=== PATIENT | female | born 1990 | race Hispanic/Latino ===

== ENCOUNTER 2019-03-26 09:01 | Inpatient (IN) | payer MEDICAID, SELFPAY ==
[2019-03-26] MEDS ORDERED: hydrALAZINE 20 MG/ML VIAL SLOW IVP PRN ×2 (09:40→14:21)
[2019-03-26] MEDS ORDERED: Ondansetron PF 4 MG/2 ML Vial IVP PRN (09:40)
[2019-03-26] MEDS ORDERED: Lidocaine 1% (PF) 30 ML VIAL SC PRN (09:40)
[2019-03-26] MEDS ORDERED: NS / Oxytocin 40 units/1000ml 1,000 ML IV PRN (09:40)
[2019-03-26] MEDS ORDERED: Promethazine HCl 25 MG/ML VIAL IM PRN (09:40)
[2019-03-26] MEDS ORDERED: Lactated Ringer's 1,000 ML IV SCH (09:45)
[2019-03-26] MEDS ORDERED: Penicillin G Potassium 5 MILL.UNITS VIAL ONE (09:46)
[2019-03-26] MEDS ORDERED: NS / Oxytocin 40 units/1000ml 1,000 ML ONE (09:49)
--- NOTE | 2019-03-26 10:03 | PDOC.FPROB ---
FMR OB H&P: HPI - History of Present Illness Chief Complaint: Contractions Indentification: 29yo female at approx 39-40wks History of Present Illness: 29yo kazakh speaking female at approx 39-40wks presents for contractions. care in [place]. Report contractions starting this morning. Denies vaginal bleeding, LOF, vaginal discharge. Primary Care Physician: Sumeet FMR OB H&P: Current - Care : 2 Para: 1001 Gestational age: 39-40wks Due date: approx 03/22-03/31 Course/Complications: Denies - OB Labs Blood type: unknown RH: unknown Antibody Screen: unknown HIV: unknown RPR: unknown HepBsAg: unknown Quad screen: unknown Gonorrhea: unknown Chlamydia: unknown GBS: unknown FMR OB H&P: History - Past Medical History PMH: Denies - OB History OB History: 1 vaginal delivery at term - Surgical History Sx History: Denies - Social History Social History: Denies tobacco, alcohol and drug use - Family History Family History: Noncontributory FMR OB H&P: Medications - Current Home Medications: Medication Instructions Recorded Confirmed Type No Known 03/26/19 03/26/19 History Allergies/Adverse Reactions: Allergies Allergy/AdvReac Type Severity Reaction Status Date / Time Sulfa (Sulfonamide Allergy Verified 03/26/19 10:03 Antibiotics) trimethoprim Allergy Verified 03/26/19 10:03 FMR OB H&P: ROS - Review of Systems General: denies: fever/chills Eyes: denies: vision changes, double vision, scotomas, floaters Respiratory: denies: shortness of breath Gastrointestinal: denies: abdominal pain, nausea Genitourinary (Female): reports: contractions. denies: vaginal bleeding Neurologic: denies: headache Integumentary: denies: rash FMR OB H&P: Vital Signs - Maternal Vital signs: Selected Entries 03/26/19 09:23 Temperature 97.5 F L Pulse Rate 81 Blood Pressure 113/81 [Semi-Fowlers] Respiratory 18 Rate - Heart Tones Baseline: 140 Variability: moderate Acceleration: present Deceleration: absent Category: category 1 FMR OB H&P: Physical Exam - Physical Exam General: NAD, awake, alert and oriented HEENT: normocephalic and atraumatic, MMM, conjunctiva clear, oropharynx clear Neck: supple, trachea midline General: no respiratory distress Abdomen: soft, gravid Musculoskeletal: pulses present, no misalignment/asymmetry, no atrophy Skin: no rash Lymphatic: no unusual bruising or bleeding Psychiatric: intact recent and remote memory, good judgement and insight, normal mood and affect - Pelvic Exam Vulva: normal hair distribution, appropriate deborah stage, no masses SVE: /-2 Membranes: Intact Presentation: cephalic by US FMR OB H&P: A/P Disposition: 29yo female at approx 39-40wks presenting in active labor Term - No records due to PNC in [place] - Will obtain routine admission labs as well as HIV, Rubella labs and UDS - Cephalic confirmed with US. - GBS unknown, Penicillin G ordered - Manage expectantly - Does not desire epidural Discussion: Date/Time: 03/26/19 1003 This H&P was discussed with Dr. Roblero who agree with the above documentation and plan. Addendum - Attending - Attending Attestation Date/Time: 03/26/19 1252 I personally evaluated the patient and discussed the management with Dr. Retana. I agree with the History, Examination, Assessment and Plan documented above.
[2019-03-26 10:10] VITALS: BMI 24.0
[2019-03-26] MEDS ORDERED: Penicillin G Potassium 5 MILL.UNITS in Sodium Chloride 0.9% 100 ML IVPB SCH (10:15)
[2019-03-26 10:17] LABS: Hemoglobin 14.6 g/dL (12.0-16.0); Mean Corpuscular HGB CONC 34.2 g/dL (32.0-36.0); Mean Corpuscular Hemoglobin 32.6 pg (27.0-31.0); Mean Corpuscular Volume 95.2 fL (78.0-98.0); Mean Platelet Volume 9.6 fL (7.4-10.4); Platelet Count 133 thou/uL (130-400); RBC Distribution Width 11.2 % (11.5-14.5); Red Blood Cell (RBC) Count 4.49 mill/uL (4.20-5.40); White Blood Cell (WBC) Count 10.1 thou/uL (4.8-10.8)
[2019-03-26 10:57] LABS: Syphilis Antibody Nonreactive (Nonreactive); Syphilis Antibody Index 0.05 S/CO (<1.00 Non-Reactive)
[2019-03-26 11:00] LABS: HBSAg Index 0.19 S/CO (0-0.99); Hep B Surf Ag Non-Reactive S/CO (NonReactive)
[2019-03-26 12:21] LABS: HIV (1/2) Antibody/Antigen Non-Reactive (NonReactive); HIV 1/2 INDEX 0.11 S/CO (<1.00)
[2019-03-26 12:33] LABS: Acetaminophen Less than 6.0 mcg/mL (10.0-30.0); Alcohol Less than 10 mg/dL (Less than 10); Salicylate Less than 8.0 mg/dL (15.0-30.0)
[2019-03-26] MEDS ORDERED: Penicillin G 2.5 MILL.units 2.5 MILL.UNITS in Premix Bag 1 BAG IVPB SCH (14:15)
[2019-03-26] MEDS ORDERED: Bisacodyl 10 MG SUPP PR PRN (14:21)
[2019-03-26] MEDS ORDERED: Milk Of Magnesia 30 ML UDCUP PO PRN (14:21)
[2019-03-26] MEDS ORDERED: Adacel (T-DAP) 0.5 ML SYRINGE IM ONE (14:21)
[2019-03-26] MEDS ORDERED: Lanolin Ointment 7 GM TUBE TOP PRN (14:21)
[2019-03-26] MEDS ORDERED: NS / Oxytocin 40 units/1000ml 1,000 ML IV SCH (14:21)
[2019-03-26] MEDS: Ibuprofen 800 MG TAB PO SCH ×2 (16:11→21:59)
[2019-03-26] MEDS: Ferrous Sulfate 325 MG TAB PO SCH (18:04)
[2019-03-26] MEDS: Docusate Calcium (SURFAK) 240 MG CAP PO SCH (21:59)
[2019-03-27] MEDS: Ibuprofen 800 MG TAB PO SCH ×3 (05:15→22:39)
--- NOTE | 2019-03-27 07:22 | PDOC.PP ---
Post Progress Note Post Day #: 1 Subjective: Pain is well controlled with medications and abdominal binder. Tolerating PO, ambulating, no difficulty with urination. Breast and bottle feeding. Plans to return to [place]. Does not have all the resources she needs for baby at this time. Would appreciate talking with case management. PO intake tolerated: yes Flatus: yes Ambulation: yes Vital Signs (12 hours) Temp Pulse Resp BP BP Pulse Ox 03/27/19 05:15 98.3 F 54 L 16 105/73 03/26/19 23:37 98.5 F 52 L 16 114/75 03/26/19 21:45 98.8 F 95 16 108/62 97 Weight Weight 56 kg - Physical Examination General: NAD Cardiovascular: no m/r/g, RRR Respiratory: clear to auscultation bilaterally, non-labored breathing Abdominal: no distention, appropriately TTP Deviation from normal: hypoactive bowel sounds. Abdominal binder in place. Neurological: no gross focal deficits Psychiatric: A&Ox3, normal affect Result Diagrams: 03/26/19 10:03 Additional Labs: Post Labs Blood Type A POSITIVE 03/26/19 10:19 Hep Bs Antigen Non-Reactive S/CO (NonReactive) 03/26/19 10:03 - Assessment/Plan 29yo now delivered via Term sIUP, delivered - Meeting PP milestones - Pain well controlled - Breast and bottle feeding Unsure dating, poor care - PNC in [place]. Unsure of due date. Approx 40wks - Drug screen negative. - CM consulted - Rubella status pending. Addendum - Attending - Attending Attestation Date/Time: 03/28/19 0850 I personally evaluated the patient and discussed the management with Dr. Retana. I agree with the Assessment and Plan documented above.
[2019-03-27] MEDS: Ferrous Sulfate 325 MG TAB PO SCH ×2 (09:16→15:48)
[2019-03-27] MEDS: Docusate Calcium (SURFAK) 240 MG CAP PO SCH ×2 (09:24→22:39)
[2019-03-27] MEDS: Prenatal Vitamin 1 TAB PO SCH (09:24)
[2019-03-27 10:49] LABS: Acetaminophen Less than 6.0 mcg/mL (10.0-30.0); Alcohol Less than 10 mg/dL (Less than 10); Salicylate Less than 8.0 mg/dL (15.0-30.0)
[2019-03-28] MEDS: Ibuprofen 800 MG TAB PO SCH ×2 (06:05→14:12)
--- NOTE | 2019-03-28 07:05 | PDOC.PP ---
Post Progress Note Post Day #: 2 Subjective: Pain well controlled. Tolerating PO and Ambulating. Breast and bottle feeding is going well. Met with case management yesterday. Has all supplies needed to care for her baby. Had planned to establish care at [facility] but delivered prior to appt. Plans to follow up for visits at [facility] and Baby will follow up with [facility]. PO intake tolerated: yes Flatus: yes Ambulation: yes Vital Signs (12 hours) Temp Pulse Resp BP Pulse Ox 03/28/19 04:00 98.6 F 69 17 103/65 03/27/19 20:00 98 03/27/19 19:52 98.5 F 71 12 105/67 98 Weight Weight 56 kg - Physical Examination General: NAD Cardiovascular: no m/r/g, RRR Respiratory: clear to auscultation bilaterally, non-labored breathing Abdominal: + bowel sounds Neurological: no gross focal deficits Psychiatric: A&Ox3, normal affect Result Diagrams: 03/26/19 10:03 Additional Labs: Post Labs Blood Type A POSITIVE 03/26/19 10:19 Hep Bs Antigen Non-Reactive S/CO (NonReactive) 03/26/19 10:03 - Assessment/Plan 29yo now delivered via Term sIUP, delivered - Meeting PP milestones - Pain well controlled - Breast and bottle feeding Unsure dating, poor care - [facility] in [place]. Unsure of due date. Approx 40wks - Drug screen negative. - CM consulted - Rubella status pending.
[2019-03-28 08:33] VITALS: BP 107/68; TEMP 98.4
[2019-03-28] MEDS: Ferrous Sulfate 325 MG TAB PO SCH (10:16)
[2019-03-28] MEDS: Prenatal Vitamin 1 TAB PO SCH (10:16)
[2019-03-28] MEDS: Docusate Calcium (SURFAK) 240 MG CAP PO SCH (10:16)
--- NOTE | 2019-03-29 15:05 | DN ---
DATE OF PROCEDURE: 03/26/2019 DELIVERING PHYSICIAN: Cirstal Retana, PGY-2. PROCEDURE PERFORMED: Spontaneous vaginal delivery. ANESTHESIA: None. QBL: PREOPERATIVE DIAGNOSES: 1. Term intrauterine in labor. 2. Poor during late to care. POSTOPERATIVE DIAGNOSES: 1. Term intrauterine , delivered. 2. Poor care, late to care. INDICATIONS: A 29-year-old, G2, P1 female presents in active labor. DELIVERY NOTE: This is a 29-year-old, G2, P1 at approximately 39 to 40 weeks, who delivered a viable female infant at 12:16 on 03/26/2019 following an uneventful antepartum course despite late transfer of care. A vigorous male was delivered over an intact peritoneum in occiput anterior position. Anterior shoulder and then remainder of body delivered. No nuchal cord. The head was held down, and mouth and nares were bulb suctioned. Cord clamped after delayed cord clamping, and cut and cord blood collected. Placenta delivered intact in the Cosme position with 3-vessel cord noted. Fundal massage was performed and the fundus was firm. The cervix and vagina were inspected and found to be free of lacerations. went to nursery in good condition for routine care. Apgars were 9 and 9 at one and five minutes respectively. The patient tolerated delivery well and went to after routine recovery care. Job ID: [id number]
== END 2019-03-28 15:25 | disposition home or self-care (01) | DRG 807 ==
LOC: L&D/OP 09:01 → L&D 10:07 → 3SW 14:51
PROVIDERS: ADMIT Obstetrics & Gynecology; ATTEND Obstetrics & Gynecology
PROC: 10E0XZZ Delivery of Products of Conception, External Approach (ICD-10-PCS; principal; 2019-03-26)
PROC: 10907ZC Drainage of Amniotic Fluid, Therapeutic from Products of Conception, Via Natural or Artificial Opening (ICD-10-PCS; 2019-03-26)
DX: O80 Encounter for full-term uncomplicated delivery (principal); Z37.0 Single live birth; Z3A.40 40 weeks gestation of pregnancy
CPT/HCPCS: 36415; 80307; 85027; 86762; 86780; 86850; 86900; 86901; 87340; 87389; 99285; J2540